=== PATIENT | female | born 1960 | race Caucasian/White ===

== ENCOUNTER 2018-01-04 10:24 | Outpatient (CLI) | payer OTHER ==
[~2018-01-04 10:24] MED LIST: ALDACTONE50 MG PO; AMLODIPINE BESYL5 MG; BENADRYL50 MG PO; LEVAQUIN750 MG PO; MEDROL4 MG PO; MICARDIS20 MG PO; MICARDIS80 MG PO; TOPROL XL25 M1 PO; TOPROL XL50 MG PO
== END 2018-01-05 14:39 | disposition home or self-care (01) ==
LOC: MAMO-SONO 10:24
DX: Z12.31 Encounter for screening mammogram for malignant neoplasm of breast (principal); N62 Hypertrophy of breast

== ENCOUNTER 2018-01-04 13:04 | Outpatient (CLI) | payer OTHER | END 2018-01-04 14:00 | disposition home or self-care (01) | LOC: NUCLEAR 13:04 | DX: M81.0 Age-related osteoporosis without current pathological fracture (principal) ==

== ENCOUNTER 2018-08-23 07:22 | Outpatient (CLI) | payer OTHER | END 2018-08-23 07:26 | disposition home or self-care (01) | LOC: RAD 07:22 | DX: M12.88 Other specific arthropathies, not elsewhere classified, other specified site (principal); M46.47 Discitis, unspecified, lumbosacral region; M19.90 Unspecified osteoarthritis, unspecified site ==

== ENCOUNTER 2019-02-24 14:09 | Emergency (ER) | payer OTHER ==
[~2019-02-24] VITALS: Ht 172.7 cm; Wt 117.5 kg
[2019-02-24] MEDS ORDERED: NORVASC5 MG (15:16)
[2019-02-24] MEDS ORDERED: TOPROL XL50 MG (15:16)
[2019-02-24] MEDS ORDERED: LOSARTAN-HCTZ1 EAC1 (15:16)
== END 2019-02-24 18:05 | disposition home or self-care (01) ==
LOC: ER 14:09
DX: H66.91 Otitis media, unspecified, right ear (principal)

== ENCOUNTER → 2019-02-28 08:02 | Outpatient (CLI) | payer OTHER ==
[~2019-02-28 08:02] MED LIST changes: +LOSARTAN-HCTZ1 EAC1; +NORVASC5 MG; +TOPROL XL50 MG
== END | disposition home or self-care (01) ==
LOC: LAB 08:02
DX: E11.9 Type 2 diabetes mellitus without complications (principal); E78.00 Pure hypercholesterolemia, unspecified; E78.3 Hyperchylomicronemia; D66 Hereditary factor VIII deficiency; D65 Disseminated intravascular coagulation [defibrination syndrome]; N39.0 Urinary tract infection, site not specified; I10 Essential (primary) hypertension; Z01.811 Encounter for preprocedural respiratory examination

== ENCOUNTER 2019-03-05 07:36 | Emergency (ER) | payer OTHER ==
[~2019-03-05] VITALS: Ht 172.7 cm; Wt 117.0 kg
== END 2019-03-05 12:24 | disposition home or self-care (01) ==
LOC: ER 07:36
DX: R51 Headache (principal)

== ENCOUNTER → 2019-07-15 13:21 | Outpatient (CLI) | payer OTHER | END | disposition home or self-care (01) | LOC: LAB 13:21 | DX: I10 Essential (primary) hypertension (principal); E03.8 Other specified hypothyroidism ==

== ENCOUNTER 2019-07-16 05:30 | Day surgery (SDC) | payer OTHER | END 2019-07-16 10:00 | disposition home or self-care (01) | LOC: CIR.AMB 05:30 | DX: M65.341 Trigger finger, right ring finger (principal) ==

== ENCOUNTER 2020-06-19 23:50 | Inpatient (IN) | payer OTHER ==
[~2020-06-19] VITALS: Ht 172.7 cm; Wt 113.4 kg
--- NOTE | 2020-06-20 | NUR ---
SE RECIBE PTE ALERTA Y ORIENTADA POR KALEN. PTE REFIERE PRESENTAR DOLOR ABDOMINAL Y DE GASTON DESDE EL MIERCOLES.
--- NOTE | 2020-06-20 02:11 | NUR ---
PACIENTE ALERTA Y ORIENTADA EN KHANH KALEN ESFERAS. SE ORIENTA A PACIENTE SOBRE PROCEDIMIENTO Y TX, REFIERE ENTENDER. SE EXTRAE MUESTRAS DE LABORATORIO CON MEDIDAS ASEPTICAS Y SE ADMINISTRA MEDICAMENTOS ARMANDO ORDEN MEDICA.
[2020-06-23] MEDS ORDERED: TOPROL XL50 M1 PO (17:16)
[2020-06-23] MEDS ORDERED: LEVOTHYROXINE50 MCG PO (17:16)
[2020-06-23] MEDS ORDERED: AMLODIPINE BESYL5 MG PO (17:16)
[2020-06-23] MEDS ORDERED: LOSARTAN POTAS100 MG PO (17:16)
== END 2020-06-23 18:04 | disposition home or self-care (01) | DRG 438 ==
LOC: ER 23:50 → SEC-K 06-20 10:12 → SURG 06-20 10:12
PROVIDERS: ADMIT Internal Medicine; ATTEND Internal Medicine
PROC: BF37ZZZ Magnetic Resonance Imaging (MRI) of Pancreas (ICD-10-PCS; principal; 2020-06-20)
PROC: BW40ZZZ Ultrasonography of Abdomen (ICD-10-PCS; 2020-06-20)
DX: K85.10 Biliary acute pancreatitis without necrosis or infection (principal); K83.1 Obstruction of bile duct; K21.9 Gastro-esophageal reflux disease without esophagitis; E86.0 Dehydration; Z20.828 Contact with and (suspected) exposure to other viral communicable diseases

== ENCOUNTER 2020-08-20 08:53 | Day surgery (SDC) | payer OTHER ==
[~2020-08-20 08:53] MED LIST changes: +AMLODIPINE BESYL5 MG PO; +LEVOTHYROXINE50 MCG PO; +LOSARTAN POTAS100 MG PO; +TOPROL XL50 M1 PO
[2020-08-20] MEDS ORDERED: TYLENOL ARTHRI650 MG PO (14:08)
[2020-08-20] MEDS ORDERED: MIRALAX17 GM PO (14:08)
[2020-08-20] MEDS ORDERED: ULTRAM50 MG PO (14:08)
== END 2020-08-20 17:10 | disposition home or self-care (01) ==
LOC: CIR.AMB 08:53
PROVIDERS: ATTEND Surgery
DX: K80.10 Calculus of gallbladder with chronic cholecystitis without obstruction (principal); Z20.828 Contact with and (suspected) exposure to other viral communicable diseases

== ENCOUNTER 2020-11-18 07:14 | Outpatient (CLI) | payer OTHER ==
[~2020-11-18 07:14] MED LIST changes: +MIRALAX17 GM PO; +TYLENOL ARTHRI650 MG PO; +ULTRAM50 MG PO
== END 2020-11-18 07:37 | disposition home or self-care (01) ==
LOC: SONOGRAMA 07:14 → MAMO-SONO 07:15 → SONOGRAMA 07:37
PROVIDERS: ATTEND Internal Medicine
DX: N23 Unspecified renal colic (principal); R31.1 Benign essential microscopic hematuria; N20.0 Calculus of kidney

== ENCOUNTER 2020-11-18 08:33 | Outpatient (CLI) | payer OTHER | END 2020-11-18 08:45 | disposition home or self-care (01) | LOC: LAB 08:33 | PROVIDERS: ATTEND Internal Medicine | DX: N30.21 Other chronic cystitis with hematuria (principal); N39.0 Urinary tract infection, site not specified; R31.1 Benign essential microscopic hematuria ==